=== PATIENT | male | born 1950 | race Caucasian/White ===

== ENCOUNTER → 2019-07-04 07:54 | Outpatient (CLI) | payer MEDICARE, OTHER, SELFPAY ==
--- NOTE | 2019-07-04 | DI.ECHO.S_ITS ---
[facility]+ [facility] +---------+ : : [address] : [address] : : : : [id number] : : : : Phone: [phone]+ Echocardiogram Report + + :Name: DIANA JADE Study Date: 07/04/2019 Height: 64 in : :[facility] Weight: 140 lb : : Gender: Male BSA: 1.7 m2 : :: 1950 Age: 69 yrs BP: 166/92 mmHg: :Reason For Study: PVC : :Ordering Physician: Sachin : :Nick Performed By: Daniele Person : :Referring: SACHIN MICHEL : + + Interpretation Summary The left ventricle is normal in size, wall thickness, and systolic function without any focal wall motion abnormalities with the ejection fraction visually estimated to be 55-60%. Diastolic parameters suggest probable normal left ventricular diastolic function and normal filling pressures. There has been no significant change since the previous study. The right ventricle is normal in size and function and appears unchanged compared to the previous study. There is mild pulmonary hypertension with the right ventricular systolic pressure estimated to be at least 37 mmHg based on an estimated right atrial pressure of 3 mm Hg, and is likely higher compared to the previous study. Both atria are normal in size and unchanged compared to the previous study. There is mild tricuspid regurgitation that is unchanged compared to the previous study. There is no other significant valvular heart disease. The patient was in sinus bradycardia with heart rates between 48-59 bpm during the exam which is unchanged compared to the previous study. Procedure: A two-dimensional transthoracic echocardiogram with color flow and Doppler was performed. The study quality was technically adequate. Comparison is made with the echocardiogram of 05/15/2007. The patient was in sinus bradycardia with heart rates between 48-59 bpm during the exam. This is unchanged compared to the previous study. Left Ventricle: The left ventricle is normal in size, wall thickness, and systolic function without any focal wall motion abnormalities. The ejection fraction is estimated to be 55-60%. Diastolic parameters suggest probable normal left ventricular diastolic function and normal filling pressures. There has been no significant change since the previous study. Right Ventricle: The right ventricle is normal in size and function. This is unchanged compared to the previous study. Atria: Both atria are normal in size. This is unchanged compared to the previous study. The interatrial septum is intact with no evidence for an atrial septal defect. Mitral Valve: There is mild mitral annular calcification. The mitral valve leaflets appear normal. There is no evidence of stenosis, fluttering, or prolapse. There is trace mitral regurgitation. Aortic Valve: The aortic valve is trileaflet. The aortic valve is slightly calcified. The aortic valve opens well. No aortic regurgitation is present. Tricuspid Valve: The tricuspid valve is normal in structure and function. There is mild tricuspid regurgitation. This is unchanged compared to the previous study. There is mild pulmonary hypertension. The right ventricular systolic pressure is estimated to be at least 37 mmHg based on an estimated right atrial pressure of 3 mm Hg. This is likely higher compared to the previous study. Pulmonic Valve: The pulmonic valve is normal in structure and function. There is trace pulmonic regurgitation. There is no other significant valvular heart disease. Great Vessels: The aortic root is normal size. The dimensions of the ascending aorta are normal. The pulmonary artery is normal size. The IVC is of normal diameter and collapses greater than 50% with a sniff. This suggests a low right atrial pressure of 3 mm Hg. Pericardium/ Pleura There is no pericardial effusion. There is no pleural effusion. MMode/2D Measurements & Calculations LVIDd: 3.9 cm LVOT diam: 1.8 cm LVIDs: 2.7 cm Ao root diam: 2.6 cm FS: 31.5 % Aortic Jxn: 2.3 cm EPSS: 0.84 cm asc Aorta Diam: 2.8 cm IVSd: 1.1 cm LVPWd: 1.0 cm LV alexander. diameter/BSA (cm/m^2): 2.3 LV sys. diameter/BSA (cm/m^2): 1.6 LA A2 area: 11.7 cm2 RA long axis: 4.8 cm LA A4 area: 14.8 cm2 RA area: 12.8 cm2 LA length (vol): 4.6 cm RA vol: 29.2 ml LA vol: 31.9 ml RA : 17.4 ml/m2 LA vol index: 19.0 ml/m2 TAPSE: 2.3 cm Doppler Measurements & Calculations Ao V2 max: 94.1 cm/sec LVOT Max [place]: 89.3 cm/sec Ao V2 mean: 65.2 cm/sec LV V1 max P.2 mmHg Ao max P.5 mmHg LV V1 VTI: 21.2 cm Ao mean P.9 mmHg DARCY(I,D): 2.4 cm2 Ao V2 VTI: 21.7 cm DARCY(V,D): 2.4 cm2 sev ratio: 0.98 DARCY indexed to BSA (cm^2/m^2): 1.4 MV E max orlando: 64.6 cm/sec TR max orlando: 285.4 cm/sec MV A max [place]lando: 81.3 cm/sec TR max P.6 mmHg MV E/A: 0.79 PA V2 max: 77.2 cm/sec Med Peak E' [place]: 6.4 cm/sec PA V2 mean: 56.8 cm/sec E/E' med: 10.1 PA mean P.4 mmHg Lat Peak E' Orlando: 7.0 cm/sec PA Accel Time: 0.13 sec E/E' lat: 9.2 E/e' average: 9.6 MV dec time: 0.17 sec SV(LVOT): 52.6 ml Reading Physician:VIVIAN
== END ==
PROVIDERS: Visit Provider Specialist
DX: I07.1 Rheumatic tricuspid insufficiency (principal); I49.3 Ventricular premature depolarization
CPT/HCPCS: 93306

== ENCOUNTER 2024-03-25 08:38 | Emergency (ER) | payer MEDICARE, OTHER, SELFPAY ==
[2024-03-25] VITALS (9 sets, daily range): BP systolic 133–162; BP diastolic 63–79; PULSE 56–65; RESP 20; TEMP 37; O2SAT 95–99; BMI 24.0
--- NOTE | 2024-03-25 08:43 | ED_ITS ---
HPI - General Adult General Chief complaint: Extremity Problem,Nontraumatic Stated complaint: L foot swelling Time Seen by Provider: 03/25/24 08:43 History of Present Illness HPI narrative: Patient is a 74-year-old male past medical history of hypertension comes into the ED from home for evaluation of left foot pain swelling. States it started spontaneously a few days ago, states that it is persistent therefore decided come into the ED for further evaluation treatment no known trauma. Patient not complaining of any fever or chills no history of gout. Review of Systems Review of Systems Narrative: HEENT: Denies headache, eye drainage, eye irritation, head trauma, sore throat, voice change Cardiovascular: Denies any chest pain, palpitations, shortness of breath, tachycardia Respiratory: Denies any shortness of breath, cough, wheeze, stridor GI/: Denies any abdominal pain, nausea, vomiting, diarrhea, bright red blood per rectum, melanotic stools, urinary frequency, urinary retention, dysuria, hematuria MSK: Swelling redness pain to left foot, primarily to left great toe Skin: Denies any rashes, lesions, discoloration Neuro: Denies any headache, lightheadedness, dizziness, fainting, weakness Psych: Denies SI/HI Patient History Social History Smoking Status: Never smoker Exam Narrative Exam Narrative: General: Cooperative, comfortable, well-developed, not in acute distress HEENT: Normocephalic, atraumatic, PERRLA, normal sclera, eyelids normal, Neck: Active full range of motion, atraumatic Chest: Normal to inspection, negative crepitus, no overlying erythema ecchymosis Respiratory: Normal respiratory effort, not in acute respiratory distress, clear to auscultation bilaterally negative cough, wheeze, tachypnea, rhonchi, rales Cardiology: Regular rate rhythm negative gallop, murmur, rubs GI/: Normal to inspection, soft, nonrigid, no tenderness to palpation, exam deferred MSK: Full range of active range of motion of all 4 extremities, atraumatic, there is some edema noted to the left foot, mild erythema and tenderness to palpation over the base of the great toe however neurovascularly intact Skin: No rashes lesions noted Neuro: Alert awake oriented x3, moves all 4 extremities spontaneously, cranial nerves intact, able to answer all questions appropriately follows commands appropriately Psych: Cooperative, negative suicidal or homicidal ideations Initial Vital Signs Initial Vital Signs: Vital Signs Temperature 98.6 F 03/25/24 08:40 Pulse Rate 65 03/25/24 08:40 Respiratory Rate 20 03/25/24 08:40 Blood Pressure 162/79 H 03/25/24 08:40 Pulse Oximetry 99 03/25/24 08:40 Oxygen Delivery Method Room Air 03/25/24 08:40 Procedures [facility] [place] Procedure Name of Procedure: Arthrocentesis Side (if applicable): left Location: Great toe Time out performed: Yes Patient tolerated procedure: Well and No complications Complications: none Additional Comments: Small amount of clear synovial fluid was aspirated with small amount of blood Course Orders Ordered: ED Orders 03/25/24 08:46 XR foot LT min 3V Stat 03/25/24 08:50 US periph venous low extrem lt Stat 03/25/24 08:52 CBC Auto Diff [Complete Blood Count AUTO DIFF] Stat CMP [Comprehensive Metabolic Panel] Stat CRP [C-Reactive Protein Quant] Stat ESR [Erythrocyte Sedimentation Rate] Stat MAG [Magnesium] Stat 03/25/24 10:13 Body Fluid Culture Stat Discontinued Medications Sodium Chloride (Normal Saline 0.9%) 1,000 mls @ 1,000 mls/hr IV BOLUS ONE Stop: 03/25/24 09:45 Last Admin: 03/25/24 09:09 Dose: 1,000 mls/hr Documented By: MICHELLE Ketorolac Tromethamine (Ketorolac 30 Mg/Ml Vial) 15 mg IM NOW ONE Stop: 03/25/24 08:47 Last Admin: 03/25/24 09:10 Dose: 15 mg Documented By: MICHELLE Lidocaine HCl (Lidocaine 1% 20 Ml) 20 ml INJ NOW ONE Stop: 03/25/24 09:23 Last Admin: 03/25/24 10:17 Dose: 20 ml Documented By: MICHELLE Vital Signs Vital signs: Vital Signs - 8 hr 03/25/24 08:40 03/25/24 08:57 03/25/24 09:00 Temperature 98.6 F Pulse Rate 65 60 58 L Respiratory Rate 20 Blood Pressure 162/79 H Pulse Oximetry 99 98 97 Oxygen Delivery Method Room Air 03/25/24 09:30 03/25/24 10:00 Temperature Pulse Rate 57 L 58 L Respiratory Rate Blood Pressure Pulse Oximetry 97 96 Oxygen Delivery Method Medical Decision Making Differential Diagnosis Differential Diagnosis: Gout, septic arthritis, cellulitis, DVT Lab Data 03/25/24 08:52 03/25/24 08:52 Labs: Lab Results 03/25/24 Range/Units 08:52 WBC 7.2 (4.5-11.0) X10^3/uL RBC 4.12 L (4.5-5.9) X10^6/uL Hgb 13.6 (13.5-17.5) g/dL Hct 38.9 L (41-53) % MCV 94.3 (80-100) fL MCH 33.1 (26-34) PG MCHC 35.1 (30-36) % RDW 13.4 (11.6-14.8) % Plt Count 203 (150-400) X10^3/uL Neut % (Auto) 65.3 (50-75) % Lymph % (Auto) 21.8 L (25-40) % Ulster % (Auto) 10.7 (3-14) % Eos % (Auto) 1.6 L (2-4) % Baso % (Auto) 0.6 (0-2) % Neut # (Auto) 4700 (3725-4549) /uL Lymph # (Auto) 1600 (5858-1251) /uL Ulster # (Auto) 800 (0-900) /uL Eos # (Auto) 100 (0-450) /uL Baso # (Auto) 0 (0-100) /uL ESR 42 H (0-15) MM/HR Sodium 140 (137-145) mmol/L Potassium 3.6 (3.4-5.1) mmol/L Chloride 102 (98-107) mmol/L Carbon Dioxide 28 (22-32) mmol/L BUN 26 H (9-20) mg/dL Creatinine 1.35 H (0.66-1.25) mg/dL Estimated GFR 55 L (>60) mL/min BUN/Creatinine Ratio 19.3 (6-22) Glucose 114 H (80-110) mg/dL Calcium 9.5 (8.4-10.2) mg/dL Magnesium 2.0 (1.6-2.3) mg/dL Total Bilirubin 0.5 (0.2-1.3) mg/dL AST 30 (17-59) IU/L ALT 24 (<50) IU/L Alkaline Phosphatase 91 (38-126) U/L C-Reactive Protein 0.8 (<1.0) mg/dL Total Protein 7.8 (6.3-8.2) g/dL Albumin 4.6 (3.5-5.0) g/dL Globulin 3.2 (1.7-4.1) g/dL Albumin/Globulin Ratio 1.4 (1.0-2.8) Imaging Data X-ray foot: Radiologist's Impression: PROCEDURE: XR FOOT LT MIN 3V INDICATIONS: swelling and pain to foot TECHNIQUE: 3 views of the foot were acquired. COMPARISON: None. FINDINGS: Bones: No fractures or dislocations. No suspicious bony lesions. Soft tissues: No tibiotalar joint effusion. Achilles tendon appears normal. IMPRESSION: No acute bony abnormality. Ultrasound lower leg: Radiologist's Impression: PROCEDURE: US PERIPH VENOUS LOW EXTREM LT INDICATIONS: EDEMA TECHNIQUE: Real-time imaging, as well as color and pulse Doppler interrogation, were performed of the lower extremity deep veins from the inguinal ligament to the popliteal fossa, with documentation of the visualized calf veins. COMPARISON: None. FINDINGS: The common femoral, femoral, popliteal, and the visualized calf veins are normally compressible, and free of intraluminal thrombus. Color and pulse Doppler demonstrate normal phasic intraluminal flow. There is normal augmentation response to distal compression maneuver. IMPRESSION: Negative left lower extremity duplex venous ultrasound for DVT. [facility] Narrative Medical decision making narrative: Patient is a 74-year-old male past medical history of hypertension familial history of gout comes into the ED for swelling to his left foot left toe ongoing persistent for the past few days. Lab work unremarkable, did note had nonspecific elevation ESR however CRP normal no leukocytosis. Did attempt bedside arthrocentesis of the 1st MTP very minimal amount of synovial feel it was obtained, sent for culture but not enough to send for cell count and/or crystals. Physical exam and lab work more consistent with gout versus pseudogout, therefore will treat with NSAIDs. Instructed patient to follow up with Orthopedic surgery as well as PCP, strict return precautions were given, will give prophylactic antibiotics given bedside arthrocentesis. Patient strict return precautions were verbalized understands and agrees to being discharged home with outpatient follow up. Discharge Plan Departure Patient Disposition: Home Clinical Impression: Acute foot pain Activity Restrictions/Additional Instructions: Please follow-up with orthopedic surgery and PCP in outpatient setting Please read the discharge instructions sheet carefully and bring all papers to all doctor follow-up visits, as it may contain information that your doctor may want to see. Disease processes change and evolve, if your symptoms worsen or if you develop any new symptoms that are concerning to you please return for evaluation. Your evaluation today does not show any evidence of any life- threatening/serious illnesses requiring admission to the hospital or surgery. Please follow-up with your doctor for re-evaluation in approximately 1 day. Seek immediate medical attention for any worrisome symptoms. Referrals: Neel Sharif MD [Physician] - (Possible gout) Stand Alone Forms: Patient Portal/API
--- NOTE | 2024-03-25 08:46 | DI.RAD.S_ITS ---
PROCEDURE: XR FOOT LT MIN 3V INDICATIONS: swelling and pain to foot TECHNIQUE: 3 views of the foot were acquired. COMPARISON: None. FINDINGS: Bones: No fractures or dislocations. No suspicious bony lesions. Soft tissues: No tibiotalar joint effusion. Achilles tendon appears normal. IMPRESSION: No acute bony abnormality. Dictated by: Sal Gasca M.D. on 03/25/2024 at 9:50 Approved by: Sal Gasca M.D. on 03/25/2024 at 9:51
--- NOTE | 2024-03-25 08:50 | DI.US.S_ITS ---
PROCEDURE: US PERIPH VENOUS LOW EXTREM LT INDICATIONS: EDEMA TECHNIQUE: Real-time imaging, as well as color and pulse Doppler interrogation, were performed of the lower extremity deep veins from the inguinal ligament to the popliteal fossa, with documentation of the visualized calf veins. COMPARISON: None. FINDINGS: The common femoral, femoral, popliteal, and the visualized calf veins are normally compressible, and free of intraluminal thrombus. Color and pulse Doppler demonstrate normal phasic intraluminal flow. There is normal augmentation response to distal compression maneuver. IMPRESSION: Negative left lower extremity duplex venous ultrasound for DVT. Dictated by: Sal Gasca M.D. on 03/25/2024 at 9:51 Approved by: Sal Gasca M.D. on 03/25/2024 at 9:52
[2024-03-25] MEDS: SODIUM CHLORIDE 0.9% 1,000 ML 1000 ML IV (09:09)
[2024-03-25] MEDS: KETOROLAC 30 MG/ML VIAL 15 MG IM (09:10)
[2024-03-25 09:23] LABS: Add Manual Diff / Slide Review NO; Basophils Absolute Auto 0 /uL (0-100); Basophils Percent Auto 0.6 % (0-2); Eosinophils Absolute Auto 100 /uL (0-450); Eosinophils Percent Auto 1.6 % (2-4); Hematocrit 38.9 % (41-53); Hemoglobin 13.6 g/dL (13.5-17.5); Lymphocytes Absolute Auto 1600 /uL (1100-4500); Lymphocytes Percent Auto 21.8 % (25-40); Mean Corpuscular HGB Conc 35.1 % (30-36); Mean Corpuscular Hemoglobin 33.1 PG (26-34); Mean Corpuscular Volume 94.3 fL (80-100); Monocytes Absolute Auto 800 /uL (0-900); Monocytes Percent Auto 10.7 % (3-14); Neutrophils Absolute Auto 4700 /uL (1500-7000); Neutrophils Percent Auto 65.3 % (50-75); Platelet Count 203 X10^3/uL (150-400); Red Blood Cell Count 4.12 X10^6/uL (4.5-5.9); Red Cell Distribution Width 13.4 % (11.6-14.8); White Blood Cell Count 7.2 X10^3/uL (4.5-11.0)
[2024-03-25 09:36] LABS: Alanine Aminotransferase 24 IU/L (<50); Albumin 4.6 g/dL (3.5-5.0); Albumin Globulin Ratio 1.4 (1.0-2.8); Alkaline Phosphatase 91 U/L (38-126); Aspartate Aminotransferase 30 IU/L (17-59); BUN Creatinine Ratio 19.3 (6-22); Bilirubin Total 0.5 mg/dL (0.2-1.3); Blood Urea Nitrogen 26 mg/dL (9-20); C-Reactive Protein Quant 0.8 mg/dL (<1.0); Calcium 9.5 mg/dL (8.4-10.2); Carbon Dioxide 28 mmol/L (22-32); Chloride 102 mmol/L (98-107); Estimated Glomerular Filt Rate 55 mL/min (>60); Globulin 3.2 g/dL (1.7-4.1); Glucose 114 mg/dL (80-110); HEMOLYSIS < 15 (0-50); Potassium 3.6 mmol/L (3.4-5.1); Sodium 140 mmol/L (137-145); Total Protein 7.8 g/dL (6.3-8.2)
[2024-03-25 09:59] LABS: Erythrocyte Sedimentation Rate 42 MM/HR (0-15)
[2024-03-25] MEDS: LIDOCAINE 1% 20 ML INJ (10:17)
== END 2024-03-25 11:42 | disposition home or self-care (01) ==
PROVIDERS: Emergency Provider Student in an Organized Health Care Education/Training Program
DX: M79.672 Pain in left foot (principal); R60.0 Localized edema
CPT/HCPCS: 20600; 36415; 73630; 80053; 83735; 85025; 85651; 86140; 87070; 87075; 87205; 93971; 96360; 96361; 96372; 99284; J1885

== ENCOUNTER → 2025-03-14 13:20 | Outpatient (CLI) | payer MEDICARE, OTHER, SELFPAY ==
--- NOTE | 2025-03-14 18:42 | DI.NM.S_ITS ---
DATE OF SERVICE: 03/14/2025 EXERCISE STRESS TEST INDICATIONS: Underlying CAD, PVCs, hypertension, hyperlipidemia. CARDIAC STRESS: The patient underwent exercise stress test under the supervision of an attending staff. The patient walked on Jhon protocol for 9 minutes, achieved maximum heart rate 180 which was 125% of target heart rate, resting blood pressure 140/90 and peak blood pressure 205/98, 10.1 METS of workload and JONAS -47%. Baseline rhythm was sinus with intermittent PVCs including occasional couplets and one three beat run of NSVT. During exercise, there was no inducible ischemia. During peak exercise, PVCs got suppressed and re-appeared in recovery. No chest pain. Had shortness of breath. Normal recovery. CONCLUSION: Exercise stress test is negative for inducible ischemia. Excellent exercise tolerance. JONAS -47%. Baseline intermittent PVCs including occasional couplets and three beats run of NSVT, however, got suppressed during exercise. No chest pain. Overall, low-risk exercise stress test. Julio Johnson - CADENCE/mony/NATHALY doc#: [id number]/job#: [id number] dd: 03/14/2025 17:44:00 dt: 03/14/2025 18:07:00 DICTATING MD/COPIES TO: Tri Hillman MD COPIES MNE: MICHELINE;
== END ==
LOC: NUCM 13:21
PROVIDERS: PCP Family Medicine; Referring Provider Specialist; Visit Provider Specialist
DX: R06.09 Other forms of dyspnea (principal)
CPT/HCPCS: 93017